=== PATIENT | male | born 1985 | race Caucasian/White ===

== ENCOUNTER → 2016-12-31 | Outpatient (CLI) | payer BC ==
[~2016-12-31] VITALS: Ht 177.8 cm; Wt 116.8 kg
[~2016-12-31] MED LIST: PRLSR20 PO
[2016-12-31 15:44] VITALS: BP 138/91; PULSE 76; Ht 177.8 cm; Wt 116.8 kg
== END | disposition home or self-care (01) ==
LOC: C.NEUR 15:21
PROVIDERS: ATTEND Physician Assistant
DX: G47.33 Obstructive sleep apnea (adult) (pediatric) (principal); R06.83 Snoring

== ENCOUNTER → 2017-02-18 | Outpatient (CLI) | payer BC ==
[~2017-02-18] VITALS: Ht 177.8 cm; Wt 119.0 kg
[2017-02-18 15:55] VITALS: BP 132/94; PULSE 85; Ht 177.8 cm; Wt 119.0 kg
== END ==
LOC: C.NEUR 15:23
PROVIDERS: ATTEND Physician Assistant
DX: R51 Headache (principal); G47.33 Obstructive sleep apnea (adult) (pediatric); J45.909 Unspecified asthma, uncomplicated; R53.83 Other fatigue; R06.83 Snoring